=== PATIENT | female | born 1960 | race Native Hawaiian/Other Pacific Islander ===

== ENCOUNTER 2017-10-04 09:31 | Outpatient (CLI) | payer BC | END 2017-10-04 18:17 | disposition home or self-care (01) | LOC: MAMMO 09:31 | DX: Z12.31 Encounter for screening mammogram for malignant neoplasm of breast (principal) ==

== ENCOUNTER 2017-10-12 10:27 | Outpatient (CLI) | payer BC | END 2017-10-12 19:15 | disposition home or self-care (01) | LOC: MAMMO 10:27 | DX: R92.8 Other abnormal and inconclusive findings on diagnostic imaging of breast (principal) ==

== ENCOUNTER 2019-06-03 09:44 | Outpatient (CLI) | payer BC | END 2019-06-03 21:07 | disposition home or self-care (01) | LOC: MAMMO 09:44 | DX: Z12.31 Encounter for screening mammogram for malignant neoplasm of breast (principal) ==

== ENCOUNTER 2019-08-19 10:05 | Outpatient (CLI) | payer BC | END 2019-08-19 19:12 | disposition home or self-care (01) | LOC: RESP 10:05 | DX: R94.31 Abnormal electrocardiogram [ECG] [EKG] (principal); I10 Essential (primary) hypertension; E11.9 Type 2 diabetes mellitus without complications | CPT/HCPCS: 93306 ==

== ENCOUNTER 2019-08-20 08:16 | Outpatient (CLI) | payer BC | END 2019-08-20 22:18 | disposition home or self-care (01) | LOC: NM 08:16 | DX: R94.31 Abnormal electrocardiogram [ECG] [EKG] (principal); I10 Essential (primary) hypertension; E11.9 Type 2 diabetes mellitus without complications | CPT/HCPCS: A9500; J2785 ==

== ENCOUNTER 2019-09-23 11:18 | Outpatient (CLI) | payer BC ==
[2019-09-23 11:47] LABS: PLATELET COUNT 422 K/uL (152-353)
[2019-09-23 11:56] LABS: POTASSIUM 3.8 mmol/L (3.6-5.2)
== END 2019-09-23 19:17 | disposition home or self-care (01) ==
LOC: LABW 11:18
PROVIDERS: Specialist
DX: Z01.810 Encounter for preprocedural cardiovascular examination (principal); R93.1 Abnormal findings on diagnostic imaging of heart and coronary circulation
CPT/HCPCS: 36415; 80053; 85027

== ENCOUNTER 2019-09-30 11:10 | Outpatient (CLI) | payer BC ==
[2019-09-30 11:58] LABS: POTASSIUM 4.2 mmol/L (3.6-5.2)
== END 2019-09-30 23:06 | disposition home or self-care (01) ==
LOC: LABW 11:10
PROVIDERS: Nurse Practitioner Adult Health
DX: E11.9 Type 2 diabetes mellitus without complications (principal); I10 Essential (primary) hypertension; Z79.899 Other long term (current) drug therapy
CPT/HCPCS: 36415; 80048

== ENCOUNTER 2020-08-21 11:59 | Outpatient (CLI) | payer BC | END 2020-08-21 19:35 | disposition home or self-care (01) | LOC: MAMMO 11:59 | PROVIDERS: ATTEND Nurse Practitioner Family | DX: Z12.31 Encounter for screening mammogram for malignant neoplasm of breast (principal) ==

== ENCOUNTER 2021-10-07 08:48 | Outpatient (CLI) | payer BC | END 2021-10-07 19:57 | disposition home or self-care (01) | LOC: MAMMO 08:48 | PROVIDERS: ATTEND Nurse Practitioner Family | DX: Z12.31 Encounter for screening mammogram for malignant neoplasm of breast (principal) ==